=== PATIENT | male | born 1955 | race Caucasian/White ===

== ENCOUNTER 2020-04-08 07:58 | Inpatient (IN) ==
[2020-04-08] MEDS ORDERED: Rocuronium 50 mg VIAL 10 mg/ml 5 ml VIAL (50 mg) ONE (08:05)
[2020-04-08] MEDS ORDERED: Succinylcholine 200 mg VIAL 20 mg/ml 10 ml VIAL (200 mg) ONE (08:05)
[2020-04-08] MEDS ORDERED: Succinylcholine 200 mg VIAL 20 mg/ml 10 ml VIAL (200 mg) IV ONE (08:05)
[2020-04-08] MEDS ORDERED: Etomidate 20 mg/10 ml 2 MG/ML 10 ml VIAL IV ONE (08:05)
[2020-04-08 08:25] LABS: ABS Lymphocytes 1.5 10^3/ul (1.0-4.8); ABS Monocytes 1.3 10^3/ul (0-0.8); ABS Neutrophils 17.7 10^3/ul (1.5-7.7); Hematocrit 41 % (42-52); Hemoglobin 13.2 g/dL (14.0-18.0); Lymphocyte % 7.1 %; Mean Corpuscular HGB Conc 32 g/dL (31-36); Mean Corpuscular Hemoglobin 30 pg (27-31); Mean Corpuscular Volume 94 fL (80-94); Mean Platelet Volume 8.3 fL (7.4-10.4); Platelet Count 279 10^3/uL (150-450); Red Blood Count 4.36 10^6 /uL (4.18-5.48); Red Cell Distribution Width 15 % (10-15); White Blood Count 20.5 10^3/uL (3.5-10.8)
[2020-04-08] MEDS ORDERED: NS 0.9% 1000 ml BAG 1,000 ML IV ONE ×2 (08:28→10:12)
[2020-04-08 08:34] LABS: Ammonia 54 mcmol/L (16-53)
[2020-04-08 08:40] LABS: BNP 22 pg/mL (<=100)
[2020-04-08 08:47] LABS: ALT 14 U/L (7-52); AST 13 U/L (13-39); Albumin 4.1 g/dL (3.2-5.2); Albumin/Globulin Ratio 1.3 (1-3); Alkaline Phosphatase 91 U/L (34-104); Anion Gap 8 mmol/L (2-11); Blood Urea Nitrogen 17 mg/dL (6-24); C Reactive Protein 40.05 mg/L (<8.01); CO2 Carbon Dioxide 30 mmol/L (22-32); Calcium 9.2 mg/dL (8.6-10.3); Chloride 101 mmol/L (101-111); Creatine Kinase 82 U/L (10-223); EGFR African American 116.5 (>60); EGFR Non-African American 96.2 (>60); Globulin 3.1 g/dL (2-4); Glucose 360 mg/dL (70-100); Magnesium 1.7 mg/dL (1.9-2.7); Potassium 3.5 mmol/L (3.5-5.0); Sodium 139 mmol/L (135-145); Total Protein 7.2 g/dL (6.4-8.9)
[2020-04-08 09:01] LABS: Troponin I 0.03 ng/mL (<0.03)
[2020-04-08 09:04] LABS: Salicylate < 2.50 mg/dL (<30)
[2020-04-08] MEDS ORDERED: Iodixanol (CONTRAST) 320 MG/ML 100 ML SDV IV ONE (09:13)
[2020-04-08] MEDS ORDERED: Piperacillin/Tazobac ADVAN 3.375 GM in NS 0.9% 100 ml BAG 100 ML IVPB ONE (09:31)
[2020-04-08 09:35] LABS: Urine Appearance Clear; Urine Bilirubin Negative (Negative); Urine Blood Negative (Negative); Urine Color Amber; Urine Glucose 3+(>=500 mg/dL) (Negative); Urine Ketones 1+ (Negative); Urine Nitrite Negative (Negative); Urine Protein 1+(30 mg/dL) (Negative); Urine Specific Gravity 1.028 (1.010-1.030); Urine Urobilinogen Negative (Negative)
[2020-04-08 10:11] LABS: Urine Bacteria Absent (Absent); Urine Red Blood Cell Trace(0-2/hpf) (Absent); Urine Squamous Epithelial Cell Present (Absent); Urine White Blood Cell Trace(0-5/hpf) (Absent)
[2020-04-08] MEDS: Propofol 10 mg/ml 100 ML BTL 100 ML IV ONE ×2 (10:35→21:19)
[2020-04-08 10:44] LABS: Activated Partial Thrombo Time 31.4 seconds (26.0-38.0); INR 1.24 (0.82-1.09)
[2020-04-08 10:52] LABS: HDL Cholesterol 32.9 mg/dL
[2020-04-08] MEDS ORDERED: Midazolam 2 mg/2 ml VIAL 1 mg/ml 2 ml VIAL (2 mg) IV SLOW PU ONE (11:03)
[2020-04-08] MEDS ORDERED: Piperacillin/Tazobac ADVAN 3.375 GM in NS 0.9% 100 ml BAG 100 ML IV ONE (13:46)
[2020-04-08] MEDS ORDERED: Zosyn per Pharmacy NOTE FOLLOW UP SCH (14:00)
[2020-04-08] MEDS: ZOSYN 3.375 GM Q8H per EXTENDED INFUSION IV SCH ×3 (14:07→22:13)
[2020-04-08] MEDS: Chlorhexidine MOUTHWASH 0.12% 15 ML UDC TOPICAL SCH ×3 (16:22→21:47)
[2020-04-08] MEDS ORDERED: Acetaminophen IV 1 GM/100ML 1,000 MG/100 ML VIAL IVPB ONE (17:25)
[2020-04-08] MEDS ORDERED: Propofol 10 mg/ml 100 ML BTL 100 ML ONE (18:20)
[2020-04-08] MEDS: Lactated Ringers 1000 ml BAG 1,000 ML IV SCH (18:57)
[2020-04-08] MEDS: Famotidine IV 10 MG/ML 2 ml VIAL (20 mg) IV SLOW PU SCH (20:27)
[2020-04-08 22:56] LABS: Influenza A Molecular Negative (Negative); Influenza B Molecular Negative (Negative)
[2020-04-08 22:56] LABS: Troponin I 0.43 ng/mL (<0.03)
[2020-04-08] MEDS: Heparin 5000 UNITS/ML 1 mL VIAL SUBCUT SCH (23:06)
[2020-04-08 23:13] LABS: Vitamin B12 201 pg/mL (180-914)
[2020-04-08] MEDS: Norepinephrine 16MCG/ML IVPRE 4,000 MCG/250 ML BAG IV SCH (23:32)
[2020-04-09] MEDS: Chlorhexidine MOUTHWASH 0.12% 15 ML UDC TOPICAL SCH ×3 (02:20→11:00)
[2020-04-09 03:47] LABS: Troponin I 0.27 ng/mL (<0.03)
[2020-04-09 04:30] LABS: ABS Basophils 0.1 10^3/ul (0-0.2); ABS Lymphocytes 1.3 10^3/ul (1.0-4.8); ABS Neutrophils 13.9 10^3/ul (1.5-7.7); Eosinophil % 0.1 %; Hematocrit 32 % (42-52); Lymphocyte % 7.8 %; Mean Corpuscular HGB Conc 34 g/dL (31-36); Mean Corpuscular Hemoglobin 31 pg (27-31); Mean Corpuscular Volume 90 fL (80-94); Platelet Count 234 10^3/uL (150-450); Red Blood Count 3.57 10^6 /uL (4.18-5.48); Red Cell Distribution Width 15 % (10-15); White Blood Count 16.2 10^3/uL (3.5-10.8)
[2020-04-09 04:46] LABS: BUN/Creatinine Ratio 20.7 (8-20); EGFR African American 171.2 (>60); EGFR Non-African American 141.5 (>60)
[2020-04-09] MEDS ORDERED: Potassium Chloride LIQUID 20 MEQ/15 ML LIQUID PO ONE (04:54)
[2020-04-09] MEDS: ZOSYN 3.375 GM Q8H per EXTENDED INFUSION IV SCH ×3 (05:34→21:49)
[2020-04-09] MEDS: Heparin 5000 UNITS/ML 1 mL VIAL SUBCUT SCH ×3 (05:34→21:49)
[2020-04-09 06:34] LABS: Troponin I 0.22 ng/mL (<0.03)
[2020-04-09] MEDS: Norepinephrine 16MCG/ML IVPRE 4,000 MCG/250 ML BAG IV SCH (06:36)
[2020-04-09] MEDS: Aspirin EC 81 mg TAB.EC (enteric coated) PO SCH (07:22)
[2020-04-09] MEDS: Famotidine IV 10 MG/ML 2 ml VIAL (20 mg) IV SLOW PU SCH (07:34)
[2020-04-09 10:10] LABS: Troponin I 0.19 ng/mL (<0.03)
[2020-04-09] MEDS ORDERED: Lactated Ringers 500 ml BAG 500 ML IV ONE (10:33)
[2020-04-09] MEDS: Lactated Ringers 1000 ml BAG 1,000 ML IV SCH (20:49)
[2020-04-09] MEDS ORDERED: LORazepam 2 mg VIAL 1 ml ONE ×2 (22:21→22:22)
[2020-04-09] MEDS ORDERED: LORazepam 2 mg VIAL 1 ml IV PUSH ONE ×2 (22:21→22:34)
[2020-04-09] MEDS ORDERED: Lorazepam PYXIS KEY ONE (22:21)
[2020-04-09] MEDS ORDERED: Lorazepam PYXIS KEY PRN (22:21)
[2020-04-09] MEDS ORDERED: Succinylcholine 200 mg VIAL 20 mg/ml 10 ml VIAL (200 mg) ONE (22:25)
[2020-04-09] MEDS ORDERED: Rocuronium 50 mg VIAL 10 mg/ml 5 ml VIAL (50 mg) ONE (22:26)
[2020-04-09 22:49] LABS: BUN/Creatinine Ratio 15.5 (8-20); Calcium 8.7 mg/dL (8.6-10.3); EGFR African American 171.2 (>60); EGFR Non-African American 141.5 (>60); Magnesium 1.6 mg/dL (1.9-2.7); Potassium 3.4 mmol/L (3.5-5.0)
[2020-04-09] MEDS ORDERED: FOSPHENYTOIN IVPB ONE (23:00)
[2020-04-09] MEDS ORDERED: Propofol 10 mg/ml 100 ML BTL 100 ML IV SCH (23:00)
[2020-04-09] MEDS ORDERED: NS 0.9% IVPB ONE (23:00)
[2020-04-09] MEDS ORDERED: Midazolam 50 MG VIAL IV DRIP 50 ML IV SCH ×2 (23:00)
[2020-04-09] MEDS ORDERED: levETIRAcetam 1000MG IVPREMIX 1,000 MG/100 ML BAG IVPB ONE (23:00)
[2020-04-09 23:06] LABS: Phosphorus 2.6 mg/dL (2.5-5.0)
[2020-04-09] MEDS ORDERED: Magnesium Sulfate 2 gm BAG 2 GM/50 ML BAG IVPB ONE (23:07)
[2020-04-10] MEDS: Famotidine IV 10 MG/ML 2 ml VIAL (20 mg) IV SLOW PU SCH ×3 (00:12→19:48)
[2020-04-10] MEDS: Chlorhexidine MOUTHWASH 0.12% 15 ML UDC TOPICAL SCH ×6 (00:22→19:48)
[2020-04-10] MEDS: KCL 20 MEQ/100 ML IVPREMIX 20 MEQ/100 ML BAG IV SCH ×2 (00:28→02:34)
[2020-04-10 05:12] LABS: ABS Lymphocytes 0.6 10^3/ul (1.0-4.8); ABS Monocytes 0.6 10^3/ul (0-0.8); ABS Neutrophils 10.9 10^3/ul (1.5-7.7); Hematocrit 32 % (42-52); Hemoglobin 10.5 g/dL (14.0-18.0); Lymphocyte % 5.3 %; Mean Corpuscular HGB Conc 33 g/dL (31-36); Mean Corpuscular Hemoglobin 31 pg (27-31); Mean Corpuscular Volume 92 fL (80-94); Mean Platelet Volume 8.7 fL (7.4-10.4); Platelet Count 165 10^3/uL (150-450); Red Blood Count 3.44 10^6 /uL (4.18-5.48); Red Cell Distribution Width 15 % (10-15); White Blood Count 12.1 10^3/uL (3.5-10.8)
[2020-04-10 05:32] LABS: Albumin 2.9 g/dL (3.2-5.2); Albumin/Globulin Ratio 1.2 (1-3); BUN/Creatinine Ratio 14.8 (8-20); Calcium 8.1 mg/dL (8.6-10.3); EGFR African American 185.9 (>60); EGFR Non-African American 153.7 (>60); Globulin 2.5 g/dL (2-4); Potassium 3.9 mmol/L (3.5-5.0); Total Bilirubin 1.6 mg/dL (0.2-1.0); Total Protein 5.4 g/dL (6.4-8.9)
[2020-04-10] MEDS: Levothyroxine 100 MCG/5 ML VIAL IV SCH (05:46)
[2020-04-10] MEDS: Heparin 5000 UNITS/ML 1 mL VIAL SUBCUT SCH ×3 (05:47→21:42)
[2020-04-10] MEDS: ZOSYN 3.375 GM Q8H per EXTENDED INFUSION IV SCH (06:00)
[2020-04-10] MEDS ORDERED: levETIRAcetam 500 MG IVPREMIX 500 MG/100 ML BAG IV SCH (10:00)
[2020-04-10] MEDS ORDERED: Midazolam 50 MG VIAL IV DRIP 50 ML IV SCH (11:23)
[2020-04-10] MEDS ORDERED: Acyclovir IV 500 MG/10 ML 100 ML VIAL (500 MG) IVPB SCH (13:00)
[2020-04-10] MEDS: cefTRIAXone 2 GM ADDV.VIAL 2 GM in NS 0.9% 100 ml BAG 100 ML IV SCH (13:23)
[2020-04-10] MEDS: Acyclovir IV 700 MG in NS 0.9% 100 ml BAG 100 ML IVPB SCH ×2 (14:03→21:42)
[2020-04-10] MEDS ORDERED: Propofol 10 mg/ml 100 ML BTL 100 ML IV SCH (15:00)
[2020-04-10] MEDS ORDERED: Lactated Ringers 500 ml BAG 500 ML IV ONE (15:02)
[2020-04-10] MEDS: Propofol 10 mg/ml 100 ML BTL 100 ML IV SCH (15:53)
[2020-04-10] MEDS: levETIRAcetam 1000MG IVPREMIX 1,000 MG/100 ML BAG IVPB SCH (17:10)
[2020-04-11] MEDS: Lactated Ringers 1000 ml BAG 1,000 ML IV SCH ×2 (02:07→20:36)
[2020-04-11] MEDS: Chlorhexidine MOUTHWASH 0.12% 15 ML UDC TOPICAL SCH ×4 (04:08→12:18)
[2020-04-11 04:17] LABS: INR 1.27 (0.82-1.09)
[2020-04-11 04:36] LABS: ABS Eosinophils 0.2 10^3/ul (0-0.6); ABS Lymphocytes 0.7 10^3/ul (1.0-4.8); ABS Monocytes 0.3 10^3/ul (0-0.8); ABS Neutrophils 4.9 10^3/ul (1.5-7.7); Eosinophil % 3.1 %; Hematocrit 27 % (42-52); Hemoglobin 9.1 g/dL (14.0-18.0); Lymphocyte % 11.5 %; Mean Corpuscular HGB Conc 34 g/dL (31-36); Mean Corpuscular Hemoglobin 31 pg (27-31); Mean Corpuscular Volume 91 fL (80-94); Mean Platelet Volume 8.3 fL (7.4-10.4); Platelet Count 166 10^3/uL (150-450); Red Blood Count 2.97 10^6 /uL (4.18-5.48); Red Cell Distribution Width 15 % (10-15); White Blood Count 6.2 10^3/uL (3.5-10.8)
[2020-04-11 04:58] LABS: Albumin 2.7 g/dL (3.2-5.2); Albumin/Globulin Ratio 1.1 (1-3); BUN/Creatinine Ratio 17.4 (8-20); Calcium 7.8 mg/dL (8.6-10.3); EGFR African American 223.7 (>60); EGFR Non-African American 184.9 (>60); Globulin 2.5 g/dL (2-4); Potassium 3.2 mmol/L (3.5-5.0); Total Bilirubin 0.6 mg/dL (0.2-1.0); Total Protein 5.2 g/dL (6.4-8.9)
[2020-04-11] MEDS: levETIRAcetam 1000MG IVPREMIX 1,000 MG/100 ML BAG IVPB SCH ×2 (05:31→20:26)
[2020-04-11] MEDS: Levothyroxine 100 MCG/5 ML VIAL IV SCH (05:31)
[2020-04-11] MEDS: Acyclovir IV 700 MG in NS 0.9% 100 ml BAG 100 ML IVPB SCH ×3 (05:49→21:53)
[2020-04-11] MEDS: Famotidine IV 10 MG/ML 2 ml VIAL (20 mg) IV SLOW PU SCH ×2 (07:44→20:27)
[2020-04-11] MEDS: Propofol 10 mg/ml 100 ML BTL 100 ML IV SCH (07:49)
[2020-04-11] MEDS: KCL 20 MEQ/100 ML IVPREMIX 20 MEQ/100 ML BAG IV SCH ×3 (08:22→23:33)
[2020-04-11] MEDS ORDERED: Norepinephrine 16MCG/ML IVPRE 4,000 MCG/250 ML BAG IV ONE (09:31)
[2020-04-11] MEDS ORDERED: Norepinephrine 16MCG/ML IVPRE 4,000 MCG/250 ML BAG IV SCH (10:00)
[2020-04-11 10:56] LABS: Body Fluid Source Cerebral Spinal
[2020-04-11 11:10] LABS: CSF Glucose 94 mg/dL (40-70)
[2020-04-11 14:53] LABS: Body Fluid Mono 59 %
[2020-04-11] MEDS: cefTRIAXone 2 GM ADDV.VIAL 2 GM in NS 0.9% 100 ml BAG 100 ML IV SCH ×2 (15:03)
[2020-04-11] MEDS: Heparin 5000 UNITS/ML 1 mL VIAL SUBCUT SCH ×2 (15:05→21:53)
[2020-04-11] MEDS ORDERED: LORazepam 2 mg VIAL 1 ml ONE (18:42)
[2020-04-11] MEDS ORDERED: Lorazepam PYXIS KEY ONE ×2 (18:42→19:24)
[2020-04-11 23:15] LABS: BUN/Creatinine Ratio 7.1 (8-20); Calcium 7.3 mg/dL (8.6-10.3); EGFR African American 248.5 (>60); EGFR Non-African American 205.4 (>60); Magnesium 1.4 mg/dL (1.9-2.7); Potassium 3.1 mmol/L (3.5-5.0)
[2020-04-11] MEDS ORDERED: Magnesium Sulfate 2 gm BAG 2 GM/50 ML BAG IVPB ONE (23:15)
[2020-04-12] MEDS: cefTRIAXone 2 GM ADDV.VIAL 2 GM in NS 0.9% 100 ml BAG 100 ML IV SCH (00:37)
[2020-04-12] MEDS: KCL 20 MEQ/100 ML IVPREMIX 20 MEQ/100 ML BAG IV SCH (01:11)
[2020-04-12] MEDS ORDERED: Lactated Ringers 1000 ml BAG 1,000 ML IV SCH (03:34)
[2020-04-12] MEDS ORDERED: Vancomycin 1,250 MG in NS 0.9% 250 ml 250 ML IVPB ONE (03:36)
[2020-04-12] MEDS ORDERED: Vancomycin per Pharmacy 1 EA NOTE FOLLOW UP SCH (04:00)
[2020-04-12] MEDS ORDERED: Cefepime 2 GM in Dextrose 2 GM/50 ML BAG IV SCH (04:00)
[2020-04-12 04:17] LABS: ABS Lymphocytes 0.4 10^3/ul (1.0-4.8); ABS Monocytes 0.5 10^3/ul (0-0.8); ABS Neutrophils 7.3 10^3/ul (1.5-7.7); Eosinophil % 0.2 %; Hematocrit 37 % (42-52); Lymphocyte % 5.2 %; Mean Corpuscular HGB Conc 33 g/dL (31-36); Mean Corpuscular Hemoglobin 30 pg (27-31); Mean Corpuscular Volume 92 fL (80-94); Mean Platelet Volume 7.8 fL (7.4-10.4); Nucleated Red Blood Cells % 0.1; Platelet Count 270 10^3/uL (150-450); Red Blood Count 3.97 10^6 /uL (4.18-5.48); Red Cell Distribution Width 15 % (10-15); White Blood Count 8.3 10^3/uL (3.5-10.8)
[2020-04-12 04:34] LABS: Albumin 3.3 g/dL (3.2-5.2); BUN/Creatinine Ratio 5.9 (8-20); Calcium 8.3 mg/dL (8.6-10.3); EGFR African American 198.6 (>60); EGFR Non-African American 164.1 (>60); Globulin 3.3 g/dL (2-4); Potassium 4.1 mmol/L (3.5-5.0); Total Bilirubin 0.4 mg/dL (0.2-1.0); Total Protein 6.6 g/dL (6.4-8.9)
[2020-04-12] MEDS: Acyclovir IV 700 MG in NS 0.9% 100 ml BAG 100 ML IVPB SCH ×3 (05:02→21:33)
[2020-04-12] MEDS: Levothyroxine 100 MCG/5 ML VIAL IV SCH (05:50)
[2020-04-12] MEDS: Heparin 5000 UNITS/ML 1 mL VIAL SUBCUT SCH ×3 (05:50→21:33)
[2020-04-12] MEDS: levETIRAcetam 1000MG IVPREMIX 1,000 MG/100 ML BAG IVPB SCH ×2 (06:02→19:06)
[2020-04-12] MEDS: Famotidine IV 10 MG/ML 2 ml VIAL (20 mg) IV SLOW PU SCH ×2 (08:42→20:07)
[2020-04-12] MEDS ORDERED: Zosyn per Pharmacy NOTE FOLLOW UP SCH (11:00)
[2020-04-12] MEDS ORDERED: Piperacillin/Tazobac ADVAN 3.375 GM in NS 0.9% 100 ml BAG 100 ML IV ONE (11:00)
[2020-04-12] MEDS ORDERED: RISPERIDONE PO SCH (11:00)
[2020-04-12] MEDS: Chlorhexidine MOUTHWASH 0.12% 15 ML UDC TOPICAL SCH ×2 (11:20→11:21)
[2020-04-12] MEDS: Aspirin EC 81 mg TAB.EC (enteric coated) PO SCH (11:21)
[2020-04-12] MEDS: RISPERIDONE 1 MG/ML PO SCH ×2 (11:28→20:07)
[2020-04-12] MEDS: VANCOMYCIN IVPB SCH ×2 (12:37→20:08)
[2020-04-12] MEDS: ZOSYN 3.375 GM Q8H per EXTENDED INFUSION IV SCH ×2 (17:05→23:34)
[2020-04-12 17:17] LABS: BUN/Creatinine Ratio 6.1 (8-20); Calcium 8.5 mg/dL (8.6-10.3); EGFR Non-African American 171.9 (>60); Potassium 3.6 mmol/L (3.5-5.0)
[2020-04-12 18:17] LABS: HSV 1 PCR, CSF Negative (Negative); HSV 2 PCR, CSF Negative (Negative)
[2020-04-12] MEDS ORDERED: Etomidate 40 mg/20 ml (2 MG/ML) 20 ml VIAL (40 mg) ONE (18:40)
[2020-04-12] MEDS ORDERED: Propofol 10 mg/ml 100 ML BTL 100 ML ONE (18:48)
[2020-04-12] MEDS: Chlorhexidine MOUTHWASH 0.12% 15 ML UDC SWISH SPIT SCH ×2 (20:07→23:33)
[2020-04-13] MEDS: Propofol 10 mg/ml 100 ML BTL 100 ML IV SCH ×4 (00:58→23:19)
[2020-04-13] MEDS: VANCOMYCIN IVPB SCH ×3 (03:22→20:19)
[2020-04-13] MEDS: Chlorhexidine MOUTHWASH 0.12% 15 ML UDC SWISH SPIT SCH ×6 (03:22→23:18)
[2020-04-13] MEDS ORDERED: Lactated Ringers 500 ml BAG 500 ML IV SCH (04:00)
[2020-04-13] MEDS: Acyclovir IV 700 MG in NS 0.9% 100 ml BAG 100 ML IVPB SCH ×3 (05:03→22:01)
[2020-04-13 05:12] LABS: ABS Basophils 0.1 10^3/ul (0-0.2); ABS Eosinophils 0.1 10^3/ul (0-0.6); ABS Lymphocytes 0.9 10^3/ul (1.0-4.8); ABS Monocytes 0.9 10^3/ul (0-0.8); Eosinophil % 1.2 %; Hematocrit 32 % (42-52); Lymphocyte % 9.8 %; Mean Corpuscular HGB Conc 34 g/dL (31-36); Mean Corpuscular Hemoglobin 31 pg (27-31); Mean Corpuscular Volume 91 fL (80-94); Mean Platelet Volume 7.8 fL (7.4-10.4); Platelet Count 247 10^3/uL (150-450); Red Blood Count 3.57 10^6 /uL (4.18-5.48); Red Cell Distribution Width 15 % (10-15); White Blood Count 8.9 10^3/uL (3.5-10.8)
[2020-04-13 05:35] LABS: Albumin 2.7 g/dL (3.2-5.2); BUN/Creatinine Ratio 9.1 (8-20); EGFR Non-African American 150.4 (>60); Globulin 2.8 g/dL (2-4); Magnesium 1.7 mg/dL (1.9-2.7); Potassium 3.5 mmol/L (3.5-5.0); Total Bilirubin 0.5 mg/dL (0.2-1.0); Total Protein 5.5 g/dL (6.4-8.9)
[2020-04-13] MEDS: Heparin 5000 UNITS/ML 1 mL VIAL SUBCUT SCH ×3 (05:39→22:01)
[2020-04-13] MEDS: Levothyroxine 100 MCG/5 ML VIAL IV SCH (05:40)
[2020-04-13] MEDS: levETIRAcetam 1000MG IVPREMIX 1,000 MG/100 ML BAG IVPB SCH ×2 (06:08→18:15)
[2020-04-13] MEDS: RISPERIDONE 1 MG/ML PO SCH ×2 (07:40→20:22)
[2020-04-13] MEDS: ZOSYN 3.375 GM Q8H per EXTENDED INFUSION IV SCH ×2 (07:47→17:06)
[2020-04-13] MEDS ORDERED: Magnesium Sulfate 2 gm BAG 2 GM/50 ML BAG IVPB ONE (07:50)
[2020-04-13] MEDS: Famotidine IV 10 MG/ML 2 ml VIAL (20 mg) IV SLOW PU SCH ×2 (07:51→20:19)
[2020-04-13] MEDS ORDERED: Vancomycin Trough Check NOTE FOLLOW UP ONE (11:30)
[2020-04-13 11:47] LABS: EGFR African American 198.6 (>60); EGFR Non-African American 164.1 (>60)
[2020-04-13 12:18] LABS: Vancomycin Trough 14.7 mcg/mL
[2020-04-13] MEDS: Lactated Ringers 1000 ml BAG 1,000 ML IV SCH (14:02)
[2020-04-13 21:46] LABS: Varicella Zoster Result Negative (Negative); Varicella Zoster Source CSF
[2020-04-13] MEDS ORDERED: Propofol 10 MG/ML 20 ML BTL ONE (23:12)
[2020-04-13 23:46] LABS: CMV Rapid PCR Negative (Negative)
[2020-04-14] MEDS: ZOSYN 3.375 GM Q8H per EXTENDED INFUSION IV SCH ×4 (00:19→23:19)
[2020-04-14] MEDS: VANCOMYCIN IVPB SCH ×3 (03:24→20:32)
[2020-04-14] MEDS: Chlorhexidine MOUTHWASH 0.12% 15 ML UDC SWISH SPIT SCH ×6 (03:25→23:19)
[2020-04-14 05:03] LABS: ABS Eosinophils 0.3 10^3/ul (0-0.6); ABS Lymphocytes 1.1 10^3/ul (1.0-4.8); ABS Monocytes 0.5 10^3/ul (0-0.8); ABS Neutrophils 3.6 10^3/ul (1.5-7.7); Eosinophil % 5.1 %; Hematocrit 29 % (42-52); Hemoglobin 9.9 g/dL (14.0-18.0); Lymphocyte % 19.9 %; Mean Corpuscular HGB Conc 34 g/dL (31-36); Mean Corpuscular Hemoglobin 31 pg (27-31); Mean Corpuscular Volume 90 fL (80-94); Mean Platelet Volume 7.3 fL (7.4-10.4); Platelet Count 227 10^3/uL (150-450); Red Blood Count 3.24 10^6 /uL (4.18-5.48); Red Cell Distribution Width 15 % (10-15); White Blood Count 5.6 10^3/uL (3.5-10.8)
[2020-04-14 05:18] LABS: ALT 11 U/L (7-52); AST 20 U/L (13-39); Albumin 2.4 g/dL (3.2-5.2); Alkaline Phosphatase 54 U/L (34-104); Anion Gap 5 mmol/L (2-11); BUN/Creatinine Ratio 12.3 (8-20); Blood Urea Nitrogen 7 mg/dL (6-24); CO2 Carbon Dioxide 29 mmol/L (22-32); Calcium 7.4 mg/dL (8.6-10.3); Chloride 105 mmol/L (101-111); EGFR African American 174.7 (>60); EGFR Non-African American 144.4 (>60); Globulin 2.5 g/dL (2-4); Glucose 196 mg/dL (70-100); Magnesium 1.9 mg/dL (1.9-2.7); Sodium 139 mmol/L (135-145); Total Protein 4.9 g/dL (6.4-8.9)
[2020-04-14] MEDS: levETIRAcetam 1000MG IVPREMIX 1,000 MG/100 ML BAG IVPB SCH ×2 (05:34→18:10)
[2020-04-14] MEDS: Acyclovir IV 700 MG in NS 0.9% 100 ml BAG 100 ML IVPB SCH (05:56)
[2020-04-14] MEDS: Heparin 5000 UNITS/ML 1 mL VIAL SUBCUT SCH ×3 (05:57→22:05)
[2020-04-14] MEDS: Levothyroxine 100 MCG/5 ML VIAL IV SCH (06:48)
[2020-04-14] MEDS: KCL 20 MEQ/100 ML IVPREMIX 20 MEQ/100 ML BAG IV SCH ×3 (07:31→12:13)
[2020-04-14] MEDS: Famotidine IV 10 MG/ML 2 ml VIAL (20 mg) IV SLOW PU SCH ×2 (07:33→20:33)
[2020-04-14] MEDS: RISPERIDONE 1 MG/ML PO SCH ×2 (07:35→22:04)
[2020-04-14] MEDS: Propofol 10 mg/ml 100 ML BTL 100 ML IV SCH (07:51)
[2020-04-14 08:36] LABS: Phosphorus < 1.0 mg/dL (2.5-5.0)
[2020-04-14] MEDS ORDERED: Potassium Phosphate IV 15 MMOLE in NS 0.9% 250 ml 250 ML IVPB ONE (08:39)
[2020-04-14] MEDS ORDERED: NS 0.9% 250 ml 250 ML ONE (09:25)
[2020-04-14] MEDS: Lactated Ringers 1000 ml BAG 1,000 ML IV SCH (09:50)
[2020-04-14] MEDS ORDERED: Calcium Gluconate 2 GM in NS 0.9% 100 ml BAG 100 ML IV ONE (10:13)
[2020-04-14] MEDS ORDERED: NS 0.9% 100 ml BAG 100 ML ONE (11:25)
[2020-04-15] MEDS: Propofol 10 mg/ml 100 ML BTL 100 ML IV SCH ×3 (02:27→17:21)
[2020-04-15] MEDS: Chlorhexidine MOUTHWASH 0.12% 15 ML UDC SWISH SPIT SCH ×6 (04:09→23:35)
[2020-04-15] MEDS: VANCOMYCIN IVPB SCH ×3 (04:10→19:41)
[2020-04-15] MEDS: Levothyroxine 100 MCG/5 ML VIAL IV SCH (05:34)
[2020-04-15 05:43] LABS: Calcium 7.4 mg/dL (8.6-10.3); Magnesium 1.8 mg/dL (1.9-2.7); Potassium 3.6 mmol/L (3.5-5.0)
[2020-04-15] MEDS: levETIRAcetam 1000MG IVPREMIX 1,000 MG/100 ML BAG IVPB SCH ×2 (05:46→18:11)
[2020-04-15] MEDS: Heparin 5000 UNITS/ML 1 mL VIAL SUBCUT SCH ×3 (05:46→21:48)
[2020-04-15 05:49] LABS: BUN/Creatinine Ratio 11.8 (8-20); EGFR African American 142.5 (>60); EGFR Non-African American 117.8 (>60)
[2020-04-15] MEDS ORDERED: Potassium Phosphate IV 15 MMOLE in NS 0.9% 250 ml 250 ML IVPB ONE (07:53)
[2020-04-15] MEDS ORDERED: Dextrose 50% Syringe 50 ml 25 GM/50 ML SYRINGE IV PUSH PRN (07:55)
[2020-04-15] MEDS: Famotidine IV 10 MG/ML 2 ml VIAL (20 mg) IV SLOW PU SCH ×2 (08:20→21:48)
[2020-04-15] MEDS: RISPERIDONE 1 MG/ML PO SCH ×2 (08:20→22:07)
[2020-04-15] MEDS: ZOSYN 3.375 GM Q8H per EXTENDED INFUSION IV SCH ×3 (08:49→23:35)
[2020-04-16] MEDS: Propofol 10 mg/ml 100 ML BTL 100 ML IV SCH ×4 (02:57→21:41)
[2020-04-16] MEDS: Chlorhexidine MOUTHWASH 0.12% 15 ML UDC SWISH SPIT SCH ×5 (04:31→20:13)
[2020-04-16] MEDS: VANCOMYCIN IVPB SCH ×2 (04:32→12:40)
[2020-04-16 05:15] LABS: Calcium 7.6 mg/dL (8.6-10.3); Magnesium 1.9 mg/dL (1.9-2.7); Potassium 3.6 mmol/L (3.5-5.0)
[2020-04-16 05:21] LABS: BUN/Creatinine Ratio 10.2 (8-20); EGFR African American 105.8 (>60); EGFR Non-African American 87.5 (>60); Phosphorus 3.3 mg/dL (2.5-5.0)
[2020-04-16] MEDS: Levothyroxine 100 MCG/5 ML VIAL IV SCH (06:20)
[2020-04-16] MEDS: Heparin 5000 UNITS/ML 1 mL VIAL SUBCUT SCH ×3 (06:21→20:13)
[2020-04-16] MEDS: levETIRAcetam 1000MG IVPREMIX 1,000 MG/100 ML BAG IVPB SCH ×2 (07:03→17:17)
[2020-04-16] MEDS: ZOSYN 3.375 GM Q8H per EXTENDED INFUSION IV SCH ×2 (08:10→15:21)
[2020-04-16] MEDS: Famotidine IV 10 MG/ML 2 ml VIAL (20 mg) IV SLOW PU SCH ×2 (08:10→20:13)
[2020-04-16] MEDS: RISPERIDONE 1 MG/ML PO SCH ×2 (08:10→20:13)
[2020-04-16] MEDS ORDERED: Vancomycin Trough Check NOTE FOLLOW UP ONE (11:30)
[2020-04-17] MEDS: ZOSYN 3.375 GM Q8H per EXTENDED INFUSION IV SCH ×4 (00:43→23:45)
[2020-04-17] MEDS: Chlorhexidine MOUTHWASH 0.12% 15 ML UDC SWISH SPIT SCH ×7 (00:44→23:45)
[2020-04-17] MEDS: levETIRAcetam 1000MG IVPREMIX 1,000 MG/100 ML BAG IVPB SCH ×2 (05:22→16:22)
[2020-04-17] MEDS: Levothyroxine 100 MCG/5 ML VIAL IV SCH (05:24)
[2020-04-17] MEDS: Heparin 5000 UNITS/ML 1 mL VIAL SUBCUT SCH ×3 (05:24→22:07)
[2020-04-17 05:47] LABS: ABS Basophils 0.1 10^3/ul (0-0.2); ABS Eosinophils 0.3 10^3/ul (0-0.6); ABS Lymphocytes 0.8 10^3/ul (1.0-4.8); ABS Monocytes 0.4 10^3/ul (0-0.8); Eosinophil % 5.4 %; Hematocrit 28 % (42-52); Hemoglobin 9.3 g/dL (14.0-18.0); Lymphocyte % 14.9 %; Mean Corpuscular HGB Conc 34 g/dL (31-36); Mean Corpuscular Hemoglobin 31 pg (27-31); Mean Corpuscular Volume 90 fL (80-94); Mean Platelet Volume 7.5 fL (7.4-10.4); Platelet Count 268 10^3/uL (150-450); Red Blood Count 3.05 10^6 /uL (4.18-5.48); Red Cell Distribution Width 15 % (10-15); White Blood Count 5.7 10^3/uL (3.5-10.8)
[2020-04-17 06:00] LABS: BUN/Creatinine Ratio 11.6 (8-20); Calcium 7.7 mg/dL (8.6-10.3); EGFR African American 96.9 (>60); EGFR Non-African American 80.1 (>60); Magnesium 2.1 mg/dL (1.9-2.7); Phosphorus 3.6 mg/dL (2.5-5.0); Potassium 3.8 mmol/L (3.5-5.0)
[2020-04-17] MEDS ORDERED: Vancomycin Random Level NOTE FOLLOW UP ONE (06:00)
[2020-04-17] MEDS: RISPERIDONE 1 MG/ML PO SCH ×2 (07:55→20:30)
[2020-04-17] MEDS: Famotidine IV 10 MG/ML 2 ml VIAL (20 mg) IV SLOW PU SCH ×2 (07:55→20:30)
[2020-04-17] MEDS: Propofol 10 mg/ml 100 ML BTL 100 ML IV SCH ×2 (08:08→20:27)
[2020-04-17] MEDS: Vancomycin 1,250 MG in NS 0.9% 250 ml 250 ML IVPB SCH (20:29)
[2020-04-18] MEDS: Propofol 10 mg/ml 100 ML BTL 100 ML IV SCH ×3 (04:32→20:18)
[2020-04-18] MEDS: Chlorhexidine MOUTHWASH 0.12% 15 ML UDC SWISH SPIT SCH ×5 (04:32→20:19)
[2020-04-18 04:38] LABS: ABS Eosinophils 0.3 10^3/ul (0-0.6); ABS Lymphocytes 1.1 10^3/ul (1.0-4.8); ABS Monocytes 0.4 10^3/ul (0-0.8); ABS Neutrophils 5.1 10^3/ul (1.5-7.7); Eosinophil % 4.2 %; Hematocrit 28 % (42-52); Hemoglobin 9.2 g/dL (14.0-18.0); Lymphocyte % 15.5 %; Mean Corpuscular HGB Conc 33 g/dL (31-36); Mean Corpuscular Hemoglobin 31 pg (27-31); Mean Corpuscular Volume 92 fL (80-94); Mean Platelet Volume 7.1 fL (7.4-10.4); Platelet Count 287 10^3/uL (150-450); Red Cell Distribution Width 15 % (10-15); White Blood Count 6.9 10^3/uL (3.5-10.8)
[2020-04-18 05:04] LABS: BUN/Creatinine Ratio 11.8 (8-20); Calcium 7.7 mg/dL (8.6-10.3); EGFR African American 81.8 (>60); EGFR Non-African American 67.6 (>60); Magnesium 2.2 mg/dL (1.9-2.7)
[2020-04-18] MEDS: levETIRAcetam 1000MG IVPREMIX 1,000 MG/100 ML BAG IVPB SCH ×2 (05:23→17:36)
[2020-04-18] MEDS: Levothyroxine 100 MCG/5 ML VIAL IV SCH (05:25)
[2020-04-18] MEDS: Heparin 5000 UNITS/ML 1 mL VIAL SUBCUT SCH ×3 (05:25→21:56)
[2020-04-18] MEDS: ZOSYN 3.375 GM Q8H per EXTENDED INFUSION IV SCH ×2 (09:14→17:25)
[2020-04-18] MEDS: RISPERIDONE 1 MG/ML PO SCH ×2 (09:15→20:19)
[2020-04-18] MEDS: Famotidine IV 10 MG/ML 2 ml VIAL (20 mg) IV SLOW PU SCH ×2 (09:16→20:19)
[2020-04-18] MEDS: Vancomycin 1,250 MG in NS 0.9% 250 ml 250 ML IVPB SCH ×2 (12:12→20:19)
[2020-04-19] MEDS: Chlorhexidine MOUTHWASH 0.12% 15 ML UDC SWISH SPIT SCH ×6 (04:20→20:55)
[2020-04-19] MEDS: Heparin 5000 UNITS/ML 1 mL VIAL SUBCUT SCH ×3 (05:11→20:55)
[2020-04-19] MEDS: Propofol 10 mg/ml 100 ML BTL 100 ML IV SCH ×4 (05:12→19:17)
[2020-04-19] MEDS: levETIRAcetam 1000MG IVPREMIX 1,000 MG/100 ML BAG IVPB SCH ×2 (05:13→17:14)
[2020-04-19 05:34] LABS: BUN/Creatinine Ratio 11.9 (8-20); Calcium 7.8 mg/dL (8.6-10.3); EGFR African American 82.7 (>60); EGFR Non-African American 68.3 (>60); Magnesium 2.3 mg/dL (1.9-2.7); Phosphorus 3.1 mg/dL (2.5-5.0)
[2020-04-19] MEDS: Famotidine IV 10 MG/ML 2 ml VIAL (20 mg) IV SLOW PU SCH ×2 (08:24→20:55)
[2020-04-19] MEDS: RISPERIDONE 1 MG/ML PO SCH (08:25)
[2020-04-19] MEDS ORDERED: Lactated Ringers 1000 ml BAG 1,000 ML IV ONE (08:30)
[2020-04-19] MEDS ORDERED: Vancomycin Trough Check NOTE FOLLOW UP ONE (08:30)
[2020-04-19] MEDS ORDERED: Lactulose 30 ml UDC NG TUBE ONE (08:31)
[2020-04-19] MEDS ORDERED: Norepinephrine 16MCG/ML IVPRE 4,000 MCG/250 ML BAG IV SCH (08:33)
[2020-04-19] MEDS: Vancomycin 1,250 MG in NS 0.9% 250 ml 250 ML IVPB SCH (10:24)
[2020-04-19 15:00] LABS: BUN/Creatinine Ratio 13.3 (8-20); Calcium 7.9 mg/dL (8.6-10.3); EGFR African American 93.5 (>60); EGFR Non-African American 77.2 (>60); Potassium 3.9 mmol/L (3.5-5.0)
[2020-04-19] MEDS: Saline FLUSH-CENTRAL 10 ML SYRINGE CENT\\PICC SCH (20:55)
[2020-04-20] MEDS: Propofol 10 mg/ml 100 ML BTL 100 ML IV SCH ×4 (00:22→19:32)
[2020-04-20] MEDS: Chlorhexidine MOUTHWASH 0.12% 15 ML UDC SWISH SPIT SCH ×7 (01:09→23:52)
[2020-04-20] MEDS: levETIRAcetam 1000MG IVPREMIX 1,000 MG/100 ML BAG IVPB SCH ×2 (05:33→17:44)
[2020-04-20] MEDS: Heparin 5000 UNITS/ML 1 mL VIAL SUBCUT SCH ×3 (05:49→21:53)
[2020-04-20] MEDS: Saline FLUSH-CENTRAL 10 ML SYRINGE CENT\\PICC SCH ×2 (08:45→21:18)
[2020-04-20] MEDS: Famotidine IV 10 MG/ML 2 ml VIAL (20 mg) IV SLOW PU SCH ×2 (08:58→20:04)
[2020-04-20] MEDS ORDERED: Scopolamine PATCH Remove NOTE PATCH OFF SCH (16:00)
[2020-04-21] MEDS ORDERED: Propofol 10 MG/ML 20 ML BTL ONE (02:11)
[2020-04-21] MEDS: Chlorhexidine MOUTHWASH 0.12% 15 ML UDC SWISH SPIT SCH ×3 (03:23→10:41)
[2020-04-21] MEDS: Propofol 10 mg/ml 100 ML BTL 100 ML IV SCH (03:23)
[2020-04-21] MEDS: levETIRAcetam 1000MG IVPREMIX 1,000 MG/100 ML BAG IVPB SCH ×2 (05:13→17:54)
[2020-04-21] MEDS: Heparin 5000 UNITS/ML 1 mL VIAL SUBCUT SCH ×2 (05:14→14:48)
[2020-04-21] MEDS: Famotidine IV 10 MG/ML 2 ml VIAL (20 mg) IV SLOW PU SCH ×2 (08:49→20:11)
[2020-04-21] MEDS: Saline FLUSH-CENTRAL 10 ML SYRINGE CENT\\PICC SCH ×2 (08:50→20:13)
[2020-04-21] MEDS ORDERED: Morphine 2 MG/ML SYRINGE IV PRN (20:35)
[2020-04-21 22:04] VITALS: BP 100/70
== END 2020-04-21 21:09 | disposition expired | DRG 870 ==
LOC: ED 07:58 → ICU 11:06
PROVIDERS: ADMIT Internal Medicine Critical Care Medicine; ATTEND Internal Medicine